=== PATIENT | female | born 1980 | race African-American/Black ===

== ENCOUNTER 2017-05-20 16:17 | Emergency (ER) | payer SELFPAY ==
[~2017-05-20] VITALS: Ht 167.6 cm; Wt 113.4 kg
[2017-05-20 16:21] VITALS: BP 122/79
[2017-05-20] MEDS ORDERED: IBUPROFEN 600 MG TABLET PO ONE ×2 (16:28→16:30)
== END 2017-05-20 17:08 | disposition home or self-care (01) ==
LOC: ER 16:18
DX: S90.32XA Contusion of left foot, initial encounter (principal); I10 Essential (primary) hypertension; W22.8XXA Striking against or struck by other objects, initial encounter; Y93.89 Activity, other specified; Y92.89 Other specified places as the place of occurrence of the external cause; Y99.9 Unspecified external cause status
CPT/HCPCS: 29515; 73630; 99284; A4606; Z7610

== ENCOUNTER 2017-05-25 16:50 | Inpatient (IN) | payer SELFPAY ==
[~2017-05-25] VITALS: Ht 167.6 cm; Wt 117.9 kg
--- NOTE | 2017-05-25 16:50 | NUR ---
SENT BY PMD FOR LOW PLATELETS OF 3,000. NAD NOTED. PT AAO X4, AMB WITH STEADY GAIT. PLACED IN GOWN AND MONITOR. RR EVEN AND UNLABORED. VSS. PENDING MD BROOKS.
--- NOTE | 2017-05-25 18:18 | NUR ---
NURSING ENVIRONMENT FRIENDLY LANDSCAPE DESIGNER CALLED FOR MS BED.
[2017-05-25 18:28] LABS: BASOPHILS # (AUTO) 0.3 /CMM (0.0-0.2); BASOPHILS % (AUTO) 1.9 % (0.0-2.0); EOSINOPHILS # (AUTO) 0.5 /CMM (0.0-0.7); EOSINOPHILS % (AUTO) 3.4 % (0.0-6.0); HEMATOCRIT 40 % (33-45); HEMOGLOBIN 13.4 g/dL (11.5-14.8); LYMPHOCYTES # (AUTO) 5.2 /CMM (0.8-4.8); MEAN CORPUSCULAR HEMOGLOBIN 30 PG (26.0-33.0); MEAN CORPUSCULAR HGB CONC 34 g/dl (31.0-36.0); MEAN CORPUSCULAR VOLUME 90 fL (82-100); MONOCYTES # (AUTO) 1.2 /CMM (0.1-1.30); MONOCYTES % (AUTO) 7.3 % (2.0-12.0); NEUTROPHILS # (AUTO) 8.9 /CMM (1.8-8.9); NEUTROPHILS % (AUTO) 55.4 % (43.0-81.0); RDW COEFFICIENT OF VARIATION 13.3 (11.5-15.0); RED BLOOD CELL COUNT(AUTO) 4.44 MIL/uL (4.0-5.2); WHITE BLOOD COUNT (AUTO) 16.1 K/uL (4.3-11.0)
[2017-05-25 18:38] LABS: ALBUMIN 3.6 g/dL (3.4-5.0); BILIRUBIN,TOTAL 0.3 mg/dL (0.2-1.0); CALCIUM, SERUM 8.6 mg/dL (8.5-10.1); TOTAL PROTEIN, SERUM 7.7 g/dL (6.4-8.2)
[2017-05-25] MEDS ORDERED: AMLO5TAB2 PO (18:38)
[2017-05-25] MEDS ORDERED: METO25TA6 PO (18:38)
[2017-05-25 18:39] LABS: PLATELET COUNT (AUTO) 2 /CMM (150-450)
--- NOTE | 2017-05-25 18:40 | NUR ---
L HAND 20G IV ACCESSED PATENT AND FLUSHING WELL.
[2017-05-25 18:41] LABS: INR 0.95 (0.87-1.13); PROTHROMBIN TIME 9.9 SECS (9.5-12.7)
[2017-05-25] MEDS ORDERED: Z GUARD REMEDY 2 OZ OINT TP PRN (19:30)
[2017-05-25] MEDS ORDERED: MAGNESIUM HYDROXIDE 30 ML UDC PO PRN (19:30)
[2017-05-25] MEDS ORDERED: HYDROCODONE/APAP 5/325MG 1 EACH TABLET PO PRN (19:30)
[2017-05-25] MEDS ORDERED: ACETAMINOPHEN 325 MG TABLET PO PRN (19:30)
[2017-05-25] MEDS ORDERED: ONDANSETRON HCL/PF 4 MG/2 ML VIAL IVP PRN (19:30)
[2017-05-25] MEDS ORDERED: MAG HYDROX/AL HYDROX/SIMETH 30 ML UDC PO PRN (19:30)
[2017-05-25] MEDS ORDERED: ZOLPIDEM TARTRATE 5 MG TABLET PO PRN (19:30)
--- NOTE | 2017-05-25 19:41 | NUR ---
MED-SURG 327-1 MARY ANN.
--- NOTE | 2017-05-25 19:43 | NUR ---
PATIENT RETURNED TO ROOM FROM HEAD CT.
[2017-05-25 19:59] LABS: BAND % (MANUAL) 1 % (0.0-5.0); EOSINOPHILS % (MANUAL) 2 % (0-4); LYMPHOCYTES % (MANUAL) 33 % (16-48); MONOCYTES % (MANUAL) 10 % (0-11.0); NEUTROPHILS % (MANUAL) 54 (42-76)
--- NOTE | 2017-05-25 20:00 | NUR ---
RN NOTE PT ARRIVED ON UNIT. AAOX4, NO C/O ANY PAIN OR DISCOMFORT AT THIS TIME. BREATHING NON-LABORED AND EVEN. IV INTACT AND PATENT. AMBULATORY WITH STEADY GAIT. IV INTACT AND PATENT. SKIN ISSUES NOTED. ORIENTATED TO UNIT AND CALL LIGHT, INFORMED PT OF POC. WILL CONT TO MONITOR.
[2017-05-25] MEDS: PANTOPRAZOLE 40 MG TABLET.DR PO SCH (21:54)
[2017-05-25 23:20] VITALS: BP 144/88
--- NOTE | 2017-05-25 23:30 | NUR ---
RN NOTE 1ST BAG OF PLATELET STARTED
[2017-05-25 23:35] VITALS: BP 140/80
[2017-05-26] VITALS (8 sets, daily range): BP systolic 139–148; BP diastolic 75–85
--- NOTE | 2017-05-26 00:14 | NUR ---
PT PLACED ON CPAP 5 30% O2. PT IS COMFORTABLE AND NO RESP DISTRESS AT THIS TIME. CPAP PLUGGED INTO RED OUTLET, ALARMS ARE SET AND AUDIBLE. WILL CONTINUE TO MONITOR. Addendum: 05/26/17 at 0016 by ZAIN PACHECO RT Amended: Links added.
--- NOTE | 2017-05-26 02:00 | NUR ---
RN NOTE SECOND BAG OF PLATELETS STARTED. NO S/S OF ANY RXNS. WILL MONITOR.
--- NOTE | 2017-05-26 03:35 | NUR ---
RN NOTE PT C/O FEELING ITCHY ON L/R ARM AND R LEG - LOOKS LIKE MOSQUITO BITE GALINDO. NO C/O TROUBLE BREATHING, NO HIVES NOTED. MD MADE AWARE. ORDERED BENADRYL 25 MG IVP STAT, AND TO CONTINUE PLATELET TRANSFUSION. ORDERS CARRIED OUT. WILL MONITOR.
[2017-05-26] MEDS ORDERED: diphenhydrAMINE HCL 50 MG/ML VIAL ONE (03:36)
[2017-05-26] MEDS ORDERED: diphenhydrAMINE HCL ELIX 25 MG/10 ML UDC PO PRN (04:00)
[2017-05-26] MEDS ORDERED: diphenhydrAMINE HCL 50 MG/ML VIAL IV ONE (04:00)
[2017-05-26 06:58] LABS: BASOPHILS # (AUTO) 0.1 /CMM (0.0-0.2); BASOPHILS % (AUTO) 0.6 % (0.0-2.0); EOSINOPHILS # (AUTO) 0.3 /CMM (0.0-0.7); EOSINOPHILS % (AUTO) 3.5 % (0.0-6.0); HEMATOCRIT 36 % (33-45); HEMOGLOBIN 12.5 g/dL (11.5-14.8); LYMPHOCYTES # (AUTO) 3.2 /CMM (0.8-4.8); LYMPHOCYTES % (AUTO) 32.7 % (20.0-44.0); MEAN CORPUSCULAR HEMOGLOBIN 31 PG (26.0-33.0); MEAN CORPUSCULAR HGB CONC 34 g/dl (31.0-36.0); MEAN CORPUSCULAR VOLUME 90 fL (82-100); MONOCYTES # (AUTO) 0.3 /CMM (0.1-1.30); MONOCYTES % (AUTO) 2.9 % (2.0-12.0); NEUTROPHILS # (AUTO) 5.9 /CMM (1.8-8.9); NEUTROPHILS % (AUTO) 60.3 % (43.0-81.0); RDW COEFFICIENT OF VARIATION 13.9 (11.5-15.0); RED BLOOD CELL COUNT(AUTO) 4.06 MIL/uL (4.0-5.2); WHITE BLOOD COUNT (AUTO) 9.7 K/uL (4.3-11.0)
--- NOTE | 2017-05-26 07:00 | NUR ---
RN NOTE PT AAOX4, S/P 2 PLATELET TRANSFUSIONS, NO S/S OF ANY REACTIONS NO C/O ITCHING/HIVES. NO C/O OF ANY PAIN OR DISCOMFORT AT THIS TIME. IV INTACT AND PATENT. ALL NEEDS ATTENED TO, WILL F/U WITH DAY SHIFT FOR JACQUELIN.
[2017-05-26 07:11] LABS: PLATELET COUNT (AUTO) 49 /CMM (150-450)
--- NOTE | 2017-05-26 07:25 | NUR ---
RN NOTE PAGED MASTER ESTHETICIAN CAMILO TO INFORM HER ABOUT PT LOW PLATELET COUNT OF 49, WAITING CALL BACK. WILL F/U WITH DAY SHIFT RN FOR JACQUELIN.
--- NOTE | 2017-05-26 08:02 | NUR ---
MS RN OPENING NOTE PATIENT IS ALERT AND ORIENTED x4. NO PAIN AT THIS TIME. NO SOB OR DISTRESS NOTED. CALL LIGHT WITHIN REACH. SAFETY MEASURES IMPLEMENTED. IV INTACT AND PATENT NO REDNESS OR SWELLING NOTED. ABLE TO COMMUNICATE NEEDS. PLATELET TRANSFUSION GIVEN LAST, NO SIGNS OF BLEEDING OR BRUISING NOTED. INFORMED PATIENT TO NOTIFY ME IF SHE SEES SIGNS AND SYMPTOMS OF BLEEDING THAT ARE UNUSUAL TO HER TO REPORT THEM. NOTIFIED MD ABOUT PLATELET COUNT NO NEW ORDERS AT THIS TIME. AWAITING CONSULT WITH DR. SKINNER. WILL CONTINUE TO MONITOR
[2017-05-26 08:09] LABS: CALCIUM, SERUM 8.7 mg/dL (8.5-10.1); MAGNESIUM 2.1 mg/dL (1.8-2.4); PHOSPHORUS 3.8 mg/dL (2.5-4.9); POTASSIUM 3.8 mmol/L (3.5-5.1)
[2017-05-26] MEDS: PANTOPRAZOLE 40 MG TABLET.DR PO SCH (08:19)
[2017-05-26 08:41] LABS: BAND % (MANUAL) 1 % (0.0-5.0); EOSINOPHILS % (MANUAL) 1 % (0-4); LYMPHOCYTES % (MANUAL) 43 % (16-48); MONOCYTES % (MANUAL) 4 % (0-11.0); NEUTROPHILS % (MANUAL) 51 (42-76)
[2017-05-26] MEDS ORDERED: methylPREDNISolone SOD SUCC 125 MG/2ML VIAL IV ONE (09:00)
[2017-05-26 10:48] LABS: C-REACTIVE PROTEIN 1.1 mg/dL (0.0-0.9); THYROID STIMULATING HORMONE 2.072 uIU/mL (0.358-3.74)
--- NOTE | 2017-05-26 18:45 | NUR ---
MS RN CLOSING NOTE PATIENT IS ALERT AND ORIENTED x4. NO PAIN AT THIS TIME. NO SOB OR DISTRESS NOTED. CALL LIGHT WITHIN REACH AT ALL TIMES. SAFETY MEASURES IMPLEMENTED. IV INTACT AND PATENT NO REDNESS OR SWELLING NOTED. ABLE TO COMMUNICATE NEEDS. GAVE INSTRUCTIONS TO PATIENT ABOUT IDIOPATHIC THROMBOCYTOPENIA PURPURA. INFORMED PATIENT TO B CAREFUL WHEN GOING TO RESTROOM AND TO NOTIFY NURSES IF THERE ARE ANY SIGNS OF BLEEDING. SEEN BY DR. SKINNER TO FOLLOW UP OUTPATIENT FOR ITP MONITORING AND MEDICATIONS. WILL ENDORSE TO CHIEF CONTROLLER TOWER NURSE
--- NOTE | 2017-05-26 19:30 | NUR ---
MS RN NOTE RECEIVED PATIENT AWAKE IN BED. DENIES ANY PAIN OR DISCOMFORT AT THIS TIME. NO BLEEDING AT THIS TIME. IV SITE INTACT WITH NO REDNESS NOTED. BED LOCKED AND IN LOWEST POSITON. SIDE RAILS UP, CALL LIGHT WITHIN REACH. WILL CONTINUE TO MONITOR.
--- NOTE | 2017-05-27 06:15 | NUR ---
MS RN NOTE PATIENT STABLE. SLEEPING AT THIS TIME. NO BLEEDING NOTED. NO S/S OF PAIN OR DISCOMFORT NOTED. WILL ENDORSE TO DAY SHIFT FOR JACQUELIN.
[2017-05-27] MEDS: PANTOPRAZOLE 40 MG TABLET.DR PO SCH (06:31)
--- NOTE | 2017-05-27 07:44 | NUR ---
MS/RN OPENING NOTE PATIENT RECEIVED IN BED IN STABLE CONDITION. ALERT AND ORIENTED TIMES 4. NO SIGNS OF ACUTE DISTRESS. NO COMPLAIN OF PAIN AND DISCOMFORT. NO SIGN AND SYMPTOMS OF BLEEDING. ALL NEEDS ATTENDED TO AT THIS TIME. CALL LIGHT WITH IN REACH. WILL CONTINUE TO MONITOR TO ENSURE SAFETY.
[2017-05-27 08:00] VITALS: BP 148/85
[2017-05-27 10:05] LABS: BASOPHILS % (AUTO) 0.1 % (0.0-2.0); EOSINOPHILS % (AUTO) 0.1 % (0.0-6.0); HEMATOCRIT 36 % (33-45); HEMOGLOBIN 12.2 g/dL (11.5-14.8); LYMPHOCYTES # (AUTO) 3.7 /CMM (0.8-4.8); LYMPHOCYTES % (AUTO) 15.7 % (20.0-44.0); MEAN CORPUSCULAR HEMOGLOBIN 31 PG (26.0-33.0); MEAN CORPUSCULAR HGB CONC 34 g/dl (31.0-36.0); MEAN CORPUSCULAR VOLUME 91 fL (82-100); MONOCYTES # (AUTO) 1.3 /CMM (0.1-1.30); MONOCYTES % (AUTO) 5.6 % (2.0-12.0); NEUTROPHILS # (AUTO) 18.6 /CMM (1.8-8.9); NEUTROPHILS % (AUTO) 78.5 % (43.0-81.0); RDW COEFFICIENT OF VARIATION 14.8 (11.5-15.0); WHITE BLOOD COUNT (AUTO) 23.7 K/uL (4.3-11.0)
[2017-05-27 10:15] LABS: PLATELET COUNT (AUTO) 50 /CMM (150-450)
--- NOTE | 2017-05-27 10:15 | NUR ---
MS/RN Plt count Received call from lab, platelet count today is 50, value continues to trend up.
--- NOTE | 2017-05-27 10:17 | NUR ---
MS/RN Home medications Home medications have not yet be reconciled. List printed and Dr Haskins paged, order given by MD to continue medications. List sent to pharmacy.
[2017-05-27 10:33] LABS: ALBUMIN 3.2 g/dL (3.4-5.0); BILIRUBIN,TOTAL 0.3 mg/dL (0.2-1.0); CALCIUM, SERUM 8.5 mg/dL (8.5-10.1); CREATININE 1.1 mg/dL (0.6-1.3); MAGNESIUM 1.9 mg/dL (1.8-2.4); PHOSPHORUS 3.3 mg/dL (2.5-4.9); POTASSIUM 3.7 mmol/L (3.5-5.1); TOTAL PROTEIN, SERUM 7.5 g/dL (6.4-8.2)
[2017-05-27 11:56] LABS: LYMPHOCYTES % (MANUAL) 18 % (16-48); MONOCYTES % (MANUAL) 4 % (0-11.0); NEUTROPHILS % (MANUAL) 78 (42-76)
[2017-05-27 16:00] VITALS: BP 133/88
--- NOTE | 2017-05-27 16:12 | NUR ---
MS/RN BENADRYL PRN AROUND 6804 PATIENT COMPLAIN OF ITCHING ON RIGHT ARM. PATIENT VERBALIZED "IT FEELS SIMILAR ITCH LIKE YESTERDAY WHILE I WAS HAVING REACTION DURING PLATELETS INFUSION." BENADRYL 10ML ELIXIR GIVEN. PATIENT TOLERATED WELL. WILL CONTINUE TO MONITOR TO ENSURE SAFETY.
--- NOTE | 2017-05-27 16:14 | NUR ---
MS/RN SEEN BY DR. MCLEAN SEEN BY DR. MCLEAN WITH NO NEW ORDERS AT THIS TIME.
--- NOTE | 2017-05-27 16:16 | NUR ---
MS/RN SEEN BY DR SKINNER SEEN BY DR SKINNER WITH NEW ORDER FOR HEP. B AND HEP. C LAB WORK.
--- NOTE | 2017-05-27 18:03 | NUR ---
MS/RN CLOSING NOTE PATIENT IN BED IN STABLE CONDITION. NO ACUTE DISTRESS. NO COMPLAIN OF PAIN AND DISCOMFORT. ALL NEEDS ATTENDED TO. CALL LIGHT IN REACH. WILL ENDORSE TO PROTECTIVE SIGNAL REPAIRER FOR CONTINUITY OF CARE.
--- NOTE | 2017-05-27 19:40 | NUR ---
MSRN FULLY AWAKE, FAMILY MEMBERS AT BEDSIDE. NO NEEDS FOR NOW. PAINFREE. NO ACTIVE BLEEDING.
[2017-05-27 20:00] VITALS: BP 130/82
--- NOTE | 2017-05-27 23:28 | NUR ---
MSRN ONE FAMILY STAYED PER PATIENT REQUEST. NO NEEDS MADE. BLEEDING PRECAUTIONS OBSERVED.
[2017-05-28 06:20] LABS: BASOPHILS # (AUTO) 0.1 /CMM (0.0-0.2); BASOPHILS % (AUTO) 0.6 % (0.0-2.0); EOSINOPHILS # (AUTO) 0.1 /CMM (0.0-0.7); EOSINOPHILS % (AUTO) 0.7 % (0.0-6.0); HEMATOCRIT 37 % (33-45); HEMOGLOBIN 12.4 g/dL (11.5-14.8); LYMPHOCYTES # (AUTO) 7.1 /CMM (0.8-4.8); LYMPHOCYTES % (AUTO) 39.5 % (20.0-44.0); MEAN CORPUSCULAR HEMOGLOBIN 30 PG (26.0-33.0); MEAN CORPUSCULAR HGB CONC 34 g/dl (31.0-36.0); MEAN CORPUSCULAR VOLUME 90 fL (82-100); MONOCYTES # (AUTO) 0.9 /CMM (0.1-1.30); MONOCYTES % (AUTO) 5.2 % (2.0-12.0); NEUTROPHILS # (AUTO) 9.7 /CMM (1.8-8.9); RDW COEFFICIENT OF VARIATION 14.7 (11.5-15.0); RED BLOOD CELL COUNT(AUTO) 4.08 MIL/uL (4.0-5.2); WHITE BLOOD COUNT (AUTO) 17.9 K/uL (4.3-11.0)
--- NOTE | 2017-05-28 06:39 | NUR ---
MSRN NO NEEDS MADE. CLOSELY WATCHED.PLT WAS 31, BMP PENDING.
[2017-05-28 06:44] LABS: CREATININE 0.9 mg/dL (0.6-1.3); MAGNESIUM 1.9 mg/dL (1.8-2.4); PHOSPHORUS 4.6 mg/dL (2.5-4.9); POTASSIUM 3.8 mmol/L (3.5-5.1)
[2017-05-28 07:12] LABS: EOSINOPHILS % (MANUAL) 3 % (0-4); LYMPHOCYTES % (MANUAL) 44 % (16-48); MONOCYTES % (MANUAL) 7 % (0-11.0); NEUTROPHILS % (MANUAL) 46 (42-76)
--- NOTE | 2017-05-28 07:30 | NUR ---
MS/RN Patient received Patient received from night. No needs at this time, denies pain or discomfort. Call light within reach, will continue to monitor and ensure safety.
[2017-05-28 07:33] LABS: PLATELET COUNT (AUTO) 31 /CMM (150-450)
[2017-05-28 08:00] VITALS: BP 139/81
--- NOTE | 2017-05-28 08:00 | NUR ---
MS/RN Labs Critical lab result called by lab, platelet count 31, level yesterday 50. made aware.
--- NOTE | 2017-05-28 08:30 | NUR ---
MS/RN Medications Morning medications administered.
[2017-05-28] MEDS: AMLODIPINE BESYLATE 5 MG TABLET PO SCH (08:45)
[2017-05-28] MEDS: PANTOPRAZOLE 40 MG TABLET.DR PO SCH (08:45)
[2017-05-28] MEDS: METOPROLOL TARTRATE 25 MG TABLET PO SCH (08:46)
--- NOTE | 2017-05-28 09:33 | NUR ---
MS/RN S/B Dr Haskins S/B Dr Haskins - awaiting review by Dr Patel, for possible discharge later today.
--- NOTE | 2017-05-28 12:28 | NUR ---
MS/RN Update Patient updated as to plan, continue to await Dr Patel, for possible discharge later today.
--- NOTE | 2017-05-28 13:30 | NUR ---
MS/RN S/B Dr Patel Seen by Dr Patel - due to drop in platelet count, patient's discharge to be held until tomorrow. Solu-medrol ordered.
[2017-05-28] MEDS: methylPREDNISolone SOD SUCC 125 MG/2ML VIAL IV SCH (15:16)
--- NOTE | 2017-05-28 15:19 | NUR ---
MS/RN Solu-medrol Solu-medrol administered as ordered, no signs of infiltration seen.
[2017-05-28 16:00] VITALS: BP_SYST 137; BP_SYST 179; BP_DIAS 75; BP_DIAS 76
--- NOTE | 2017-05-28 18:30 | NUR ---
MS/RN End note No changes in care at this time, for discharge tomorrow if platelet count rises.
[2017-05-28 20:00] VITALS: BP 138/82
--- NOTE | 2017-05-28 20:08 | NUR ---
RN NOTES RECEIVED PATIENT IN BED, ALERT AND ORIENTED X4, CALM, NO SOB, ON ROOM AIR SPO2 97%, DENIES ANY PAIN AT THIS TIME, LUNG SOUNDS ARE CLEAR, AMBULATES, REMINDED PATIENT TO REPORT ANY BLEEDING, CONTINENT OF BOWEL AND BLADDER, FAMILY MEMBERS AT THE BEDSIDE, CALL LIGHT WITHIN REACH.
--- NOTE | 2017-05-29 06:55 | NUR ---
RN NOTES PATIENT IS ALERT AND AWAKE, NO SOB, NO RESPIRATORY DISTRESS, NO ADVERSE CHANGE OF CONDITION DURING SHIFT, NEEDS ATTENDED, CALL LIGHT WITHIN REACH.
--- NOTE | 2017-05-29 07:43 | NUR ---
MS/RN OPENING NOTE PATIENT RECEIVED IN BED IN STABLE CONDITION. ALERT AND ORIENTED TIMES 4. NO SIGNS OF ACUTE DISTRESS. DENIES ANY PAIN OR DISCOMFORT. ALL NEEDS ATTENDED TO AT THIS TIME. CALL LIGHT WITHIN REACH. WILL CONTINUE TO MONITOR TO ENSURE SAFETY.
[2017-05-29 08:00] VITALS: BP 126/84
[2017-05-29] MEDS: methylPREDNISolone SOD SUCC 125 MG/2ML VIAL IV SCH (08:16)
[2017-05-29] MEDS: AMLODIPINE BESYLATE 5 MG TABLET PO SCH (08:17)
[2017-05-29] MEDS: METOPROLOL TARTRATE 25 MG TABLET PO SCH (08:17)
[2017-05-29] MEDS: PANTOPRAZOLE 40 MG TABLET.DR PO SCH (08:17)
[2017-05-29 08:27] LABS: EOSINOPHILS # (AUTO) 0.1 /CMM (0.0-0.7); EOSINOPHILS % (AUTO) 0.2 % (0.0-6.0); HEMATOCRIT 40 % (33-45); HEMOGLOBIN 13.1 g/dL (11.5-14.8); LYMPHOCYTES % (AUTO) 12.4 % (20.0-44.0); MEAN CORPUSCULAR HEMOGLOBIN 30 PG (26.0-33.0); MEAN CORPUSCULAR HGB CONC 33 g/dl (31.0-36.0); MEAN CORPUSCULAR VOLUME 91 fL (82-100); MONOCYTES # (AUTO) 0.6 /CMM (0.1-1.30); MONOCYTES % (AUTO) 2.5 % (2.0-12.0); NEUTROPHILS # (AUTO) 20.3 /CMM (1.8-8.9); NEUTROPHILS % (AUTO) 84.9 % (43.0-81.0); RDW COEFFICIENT OF VARIATION 14.4 (11.5-15.0); RED BLOOD CELL COUNT(AUTO) 4.43 MIL/uL (4.0-5.2); WHITE BLOOD COUNT (AUTO) 23.9 K/uL (4.3-11.0)
[2017-05-29 08:40] LABS: PLATELET COUNT (AUTO) 16 /CMM (150-450)
--- NOTE | 2017-05-29 08:40 | NUR ---
MS/RN Critical lab Received call from lab for critical platelet of 31. Dr Haskins made aware.
[2017-05-29 09:13] LABS: LYMPHOCYTES % (MANUAL) 12 % (16-48); MONOCYTES % (MANUAL) 2 % (0-11.0); NEUTROPHILS % (MANUAL) 86 (42-76)
--- NOTE | 2017-05-29 09:52 | NUR ---
MS/RN SEEN BY DR MCLEAN PATIENT SEEN BY DR MCLEAN WITH ORDER FOR CBC IN AM.
--- NOTE | 2017-05-29 15:21 | NUR ---
MS/RN SEEN BY DR SKINNER PATIENT SEEN BY DR SKINNER WITH NEW ORDERS TO REPEAT PLATELET COUNT TODAY.
[2017-05-29 16:00] VITALS: BP 133/70
--- NOTE | 2017-05-29 18:11 | NUR ---
MS/RN CLOSING NOTES PATIENT IN BED IN STABLE CONDITION. NO SIGNS OF ACUTE DISTRESS. DENIES ANY PAIN OR DISCOMFORT. CALL LIGHT WITHIN REACH. WILL ENDORSE TO NEXT SHIFT FOR CONTINUITY OF CARE.
--- NOTE | 2017-05-29 19:05 | NUR ---
RN NOTE RECEIVED REPORT. PT AAOX4, NO DISTRESS NOTED AT THIS TIME, IV INTACT AND PATENT. WILL CONT TO MAN. FAMILY AT BEDSIDE, CALL LIGHT IN REACH.
[2017-05-29 20:00] VITALS: BP 127/65
--- NOTE | 2017-05-30 07:07 | NUR ---
RN NOTE PT SLEPT WELL AT NIGHT. AAOX4, NO S/S OR C/O ANY PAIN OR DISCOMFORT. IV INTACT AND PATEN, WILL F/U WITH DAY SHIFT FOR JACQUELIN.
[2017-05-30 07:38] LABS: BASOPHILS % (AUTO) 0.1 % (0.0-2.0); EOSINOPHILS # (AUTO) 0.1 /CMM (0.0-0.7); EOSINOPHILS % (AUTO) 0.3 % (0.0-6.0); HEMATOCRIT 39 % (33-45); HEMOGLOBIN 13.1 g/dL (11.5-14.8); LYMPHOCYTES # (AUTO) 4.4 /CMM (0.8-4.8); LYMPHOCYTES % (AUTO) 15.8 % (20.0-44.0); MEAN CORPUSCULAR HEMOGLOBIN 31 PG (26.0-33.0); MEAN CORPUSCULAR HGB CONC 34 g/dl (31.0-36.0); MEAN CORPUSCULAR VOLUME 90 fL (82-100); NEUTROPHILS # (AUTO) 21.6 /CMM (1.8-8.9); NEUTROPHILS % (AUTO) 76.8 % (43.0-81.0); PLATELET COUNT (AUTO) 62 /CMM (150-450); RDW COEFFICIENT OF VARIATION 14.1 (11.5-15.0); WHITE BLOOD COUNT (AUTO) 28.2 K/uL (4.3-11.0)
--- NOTE | 2017-05-30 08:02 | NUR ---
RN OPENING NOTES PATIENT IS AWAKE IN BED WITH EYES OPEN. PATIENT IS A/OX4. IV PATENT AND INTACT. PATIENT HAS NO COMPLAINTS OF PAIN AT THIS TIME. DENIES SOB. NO S/S OF ACUTE DISTRESS. RESPIRATIONS EVEN AND UNLABORED. BED LOCKED IN THE LOWEST POSITION WITH SIDE RAILS UP X2. CALL LIGHT WITHIN REACH. WILL CONTINUE TO MONITOR, ASSESS AND EDUCATE PATIENT.
[2017-05-30 08:05] LABS: LYMPHOCYTES % (MANUAL) 22 % (16-48); MONOCYTES % (MANUAL) 8 % (0-11.0); NEUTROPHILS % (MANUAL) 70 (42-76)
[2017-05-30 08:56] VITALS: BP 130/66
[2017-05-30] MEDS: methylPREDNISolone SOD SUCC 125 MG/2ML VIAL IV SCH (09:52)
[2017-05-30 09:53] VITALS: BP 130/66
[2017-05-30] MEDS: METOPROLOL TARTRATE 25 MG TABLET PO SCH (09:53)
[2017-05-30] MEDS: PANTOPRAZOLE 40 MG TABLET.DR PO SCH (09:53)
[2017-05-30] MEDS: AMLODIPINE BESYLATE 5 MG TABLET PO SCH (09:53)
[2017-05-30] MEDS ORDERED: PRED20TA PO (12:16)
--- NOTE | 2017-05-30 14:14 | NUR ---
RN CLOSING NOTES PATIENT IS A/OX4. PATIENT HAS NO COMPLAINTS OF DISCOMFORT. PATIENT IN NO ACUTE DISTRESS. NO EVIDENCE OF BLEEDING RECOGNIZED. PATIENT GIVEN DISCHARGE INSTRUCTIONS. PATIENT VERBALIZED UNDERSTAND. PATIENT DISCHARGED IN STABLE CONDITION. PATIENT TO FOLLOW UP WITH AUXILIARY ENGINEER DR. DAKOTAH SKINNER. PATIENT GIVEN WORK NOTE. PATIENT TO CONTINUE PRESCRIPTION OF PREDNISONE. PATIENT TO RETURN TO EMERGENCY ROOM IN THE EVEN OF AN EMERGENCY. PATIENT TO RETURN HOME. ALL DISCHARGE MATERIAL GIVEN TO PATIENT.
== END 2017-05-30 14:20 | disposition home or self-care (01) | DRG 813 ==
LOC: ER 17:04 → MED 19:58
PROVIDERS: ADMIT Internal Medicine; ATTEND Internal Medicine
PROC: 30233R1 Transfusion of Nonautologous Platelets into Peripheral Vein, Percutaneous Approach (ICD-10-PCS; principal; 2017-05-25)
DX: D69.3 Immune thrombocytopenic purpura (principal); R65.10 Systemic inflammatory response syndrome (SIRS) of non-infectious origin without acute organ dysfunction; E46 Unspecified protein-calorie malnutrition; Z68.41 Body mass index [BMI] 40.0-44.9, adult; B19.10 Unspecified viral hepatitis B without hepatic coma; E66.01 Morbid (severe) obesity due to excess calories; D72.829 Elevated white blood cell count, unspecified; I10 Essential (primary) hypertension; B19.20 Unspecified viral hepatitis C without hepatic coma; T38.0X5A Adverse effect of glucocorticoids and synthetic analogues, initial encounter; Y92.89 Other specified places as the place of occurrence of the external cause
CPT/HCPCS: 36415; 70450-TC; 71010-TC; 80048-TC; 80053-TC; 82746; 83615-TC; 83735-TC; 84100-TC; 84439-TC; 84443-TC; 85025-TC; 85610-TC; 85730-TC; 86140-TC; 86431-TC; 86706; 86803; 86850-TC; 87081-TC; 87340; A4606; J1200; J2930; J7050; P9016-BL; P9034-BL; Q0163; Z7610

== ENCOUNTER 2017-08-17 16:00 | Emergency (ER) | payer SELFPAY ==
[~2017-08-17] VITALS: Ht 167.6 cm; Wt 117.9 kg
[~2017-08-17 16:00] MED LIST: AMLO5TAB2 PO; METO25TA6 PO; PRED20TA PO
[2017-08-17 16:03] VITALS: BP 182/89
--- NOTE | 2017-08-17 16:27 | NUR ---
KELLEE LUNDBERG AT BEDSIDE FOR EVAL.
[2017-08-17 16:52] LABS: BASOPHILS # (AUTO) 0.1 /CMM (0.0-0.2); BASOPHILS % (AUTO) 1.1 % (0.0-2.0); EOSINOPHILS # (AUTO) 0.4 /CMM (0.0-0.7); HEMATOCRIT 41 % (33-45); HEMOGLOBIN 13.3 g/dL (11.5-14.8); LYMPHOCYTES # (AUTO) 4.4 /CMM (0.8-4.8); LYMPHOCYTES % (AUTO) 36.2 % (20.0-44.0); MEAN CORPUSCULAR HEMOGLOBIN 30 PG (26.0-33.0); MEAN CORPUSCULAR HGB CONC 33 g/dl (31.0-36.0); MEAN CORPUSCULAR VOLUME 90 fL (82-100); MONOCYTES # (AUTO) 0.9 /CMM (0.1-1.30); MONOCYTES % (AUTO) 7.3 % (2.0-12.0); NEUTROPHILS # (AUTO) 6.3 /CMM (1.8-8.9); NEUTROPHILS % (AUTO) 52.4 % (43.0-81.0); PLATELET COUNT (AUTO) 88 /CMM (150-450); RDW COEFFICIENT OF VARIATION 13.2 (11.5-15.0); RED BLOOD CELL COUNT(AUTO) 4.52 MIL/uL (4.0-5.2); WHITE BLOOD COUNT (AUTO) 12.1 K/uL (4.3-11.0)
[2017-08-17 17:02] LABS: CALCIUM, SERUM 8.6 mg/dL (8.5-10.1); POTASSIUM 3.9 mmol/L (3.5-5.1)
[2017-08-17 17:06] LABS: INR 0.91 (0.87-1.13); PROTHROMBIN TIME 9.5 SECS (9.5-12.7)
[2017-08-17 17:08] LABS: ALBUMIN 3.3 g/dL (3.4-5.0); BILIRUBIN,TOTAL 0.3 mg/dL (0.2-1.0); TOTAL PROTEIN, SERUM 7.3 g/dL (6.4-8.2)
[2017-08-17 17:39] LABS: APPEARANCE,URINE Clear (CLEAR); BILIRUBIN,URINE Negative (NEGATIVE); BLOOD, URINE Moderate Ery/uL (NEGATIVE); COLOR,URINE Yellow (YELLOW); KETONES,URINE Negative (NEGATIVE); LEUKOCYTE ESTERASE ,URINE Negative (NEGATIVE); NITRITE, URINE Negative (NEGATIVE); PROTEIN,URINE Negative (NEGATIVE); UGLUCOSE Negative (NEGATIVE); UROBILINOGEN,URINE 0.2 EU/dL (0.2)
--- NOTE | 2017-08-17 18:16 | NUR ---
Patient discharged to home in stable condition. Written and verbal after care instructions given. Patient verbalizes understanding of instruction.IV removed. Catheter intact and site benign. Pressure and 4x4 applied to site. No bleeding noted.
[2017-08-17 18:24] LABS: BACTERIA,URINE Few /HPF (None Seen); SQUAMOUS EPITHELIAL CELL,UR Few /HPF (None Seen); WBC,URINE 0-2 /HPF (0-3)
== END 2017-08-17 18:19 | disposition home or self-care (01) ==
LOC: ER 16:01
DX: D69.49 Other primary thrombocytopenia (principal); I10 Essential (primary) hypertension
CPT/HCPCS: 36415; 80048; 80076; 81001; 85025; 85730; 99284; A4606; Z7610; 81000-TC

== ENCOUNTER 2017-10-01 23:21 | Emergency (ER) | payer SELFPAY ==
[~2017-10-01] VITALS: Ht 167.6 cm; Wt 131.1 kg
--- NOTE | 2017-10-01 23:25 | NUR ---
To bed 1 a 37 yo female patient bibself c/o headache x 4 days unrelieved with tylenol at home. vss. nad nonted. nondiaphoretic. comfort measures rendered.
[2017-10-02] MEDS ORDERED: METOCLOPRAMIDE HCL 10 MG/2 ML VIAL IV ONE (01:00)
[2017-10-02] MEDS ORDERED: diphenhydrAMINE HCL 50 MG/ML VIAL IV ONE (01:00)
[2017-10-02] MEDS ORDERED: METOCLOPRAMIDE HCL 10 MG/2 ML VIAL ONE (01:01)
[2017-10-02] MEDS ORDERED: diphenhydrAMINE HCL 50 MG/ML VIAL ONE (01:01)
--- NOTE | 2017-10-02 01:10 | NUR ---
started a saline lock on the rfa g20, blood drawn and sent to lab.
--- NOTE | 2017-10-02 01:16 | NUR ---
medicated patient as ordered by Dr Barbosa.
[2017-10-02 01:19] LABS: BASOPHILS # (AUTO) 0.1 /CMM (0.0-0.2); BASOPHILS % (AUTO) 0.6 % (0.0-2.0); EOSINOPHILS # (AUTO) 0.3 /CMM (0.0-0.7); EOSINOPHILS % (AUTO) 2.6 % (0.0-6.0); HEMATOCRIT 40 % (33-45); HEMOGLOBIN 13.2 g/dL (11.5-14.8); LYMPHOCYTES # (AUTO) 5.4 /CMM (0.8-4.8); LYMPHOCYTES % (AUTO) 47.2 % (20.0-44.0); MEAN CORPUSCULAR HEMOGLOBIN 30 PG (26.0-33.0); MEAN CORPUSCULAR HGB CONC 33 g/dl (31.0-36.0); MEAN CORPUSCULAR VOLUME 90 fL (82-100); MONOCYTES # (AUTO) 0.7 /CMM (0.1-1.30); MONOCYTES % (AUTO) 6.2 % (2.0-12.0); NEUTROPHILS # (AUTO) 4.9 /CMM (1.8-8.9); NEUTROPHILS % (AUTO) 43.4 % (43.0-81.0); PLATELET COUNT (AUTO) 229 /CMM (150-450); RDW COEFFICIENT OF VARIATION 14.2 (11.5-15.0); RED BLOOD CELL COUNT(AUTO) 4.44 MIL/uL (4.0-5.2); WHITE BLOOD COUNT (AUTO) 11.3 K/uL (4.3-11.0)
[2017-10-02 01:27] LABS: CALCIUM, SERUM 8.8 mg/dL (8.5-10.1); POTASSIUM 3.9 mmol/L (3.5-5.1)
[2017-10-02 01:30] LABS: INR 0.94 (0.87-1.13); PROTHROMBIN TIME 9.8 SECS (9.5-12.7)
--- NOTE | 2017-10-02 03:50 | NUR ---
IV removed. Catheter intact and site benign. Pressure and 4x4 applied to site. No bleeding noted. Patient discharged to home in stable condition. Written and verbal after care instructions given. Patient verbalizes understanding of instruction. Patient is ambulatory with steady gait, no further complaints. Nad on dc.
[2017-10-02 03:51] VITALS: BP 144/80
== END 2017-10-02 03:52 | disposition home or self-care (01) ==
LOC: ER 23:25
DX: G43.809 Other migraine, not intractable, without status migrainosus (principal); I10 Essential (primary) hypertension; D69.2 Other nonthrombocytopenic purpura
CPT/HCPCS: 36415; 70450; 80048; 85025; 85730; 86850; 96374; 96375; 99285; A4606 ×2; J1200; J2765; Z7610 ×2